=== PATIENT | female | born 1995 | race Caucasian/White ===

== ENCOUNTER 2017-08-31 11:17 | Emergency (ER) | payer MEDICAID ==
[~2017-08-31] VITALS: Ht 5787.1 cm; Wt 46.4 kg
[2017-08-31 11:24] VITALS: BP 103/69
[2017-08-31 12:01] LABS: CLARITY,URINE CLEAR (Clear); COLOR,URINE YELLOW (Yellow); GLUCOSE, URINE NEGATIVE (Neg); KETONES,URINE NEGATIVE (Neg); LEUKOCYTE ESTERASE ,URINE NEGATIVE (Neg); NITRITES, URINE NEGATIVE (Neg); OCCULT BLOOD,URINE NEGATIVE (Neg); PH,URINE 5.5 (4.8-8.0); PROTEIN,URINE NEGATIVE (Neg); URINE HCG NEGATIVE (NEG); UROBILINOGEN,URINE 0.2 E.U/dL (0.2-1.0)
[2017-08-31 12:08] LABS: UA COLLECTION TYPE CLN CATCH MIDSTREAM
[2017-08-31] MEDS ORDERED: NITR100C6 PO (12:50)
== END 2017-08-31 13:01 | disposition home or self-care (01) ==
LOC: ER 11:17
DX: R39.15 Urgency of urination (principal); R10.30 Lower abdominal pain, unspecified; R11.0 Nausea; Z87.440 Personal history of urinary (tract) infections
CPT/HCPCS: 81003; 81025; 99284